=== PATIENT | female | born 1980 | race Caucasian/White ===

== ENCOUNTER 2018-02-24 18:12 | Emergency (ER) | payer OTHER ==
--- NOTE | 2018-02-24 18:52 | ERPHSYRPT ---
- History of Present Illness Time Seen by Provider: 02/24/18 18:38 Source: patient Exam Limitations: no limitations Patient Subjective Stated Complaint: left sided front head pain that radiates to the left ear and to the left jaw Triage Nursing Assessment: Pt c/o of left sided front head pain that radiates to her left ear and into her left jaw, reports that this occurs every winter, vitals wnl with the exception of BP 147/90, afebrile, pulses normal, rates pain 7/10, PERRL, no difficulties with strength Physician History: 37-year-old white female arrives with complaint of recurrent pain in her left frontal area left maxillary area radiates to her left ear. She states she's had this off-and-on for 2 months she states that it generally gets better after being placed on antibiotics by her family doctor. She does have nasal congestion and left ear pain. She has no fevers no nausea no vomiting. Past medical history includes asthma, diabetes type 2, anxiety, depression, panic disorder. Past surgical history includes cholecystectomy, , tubal ligation. Social history positive tobacco use patient denies alcohol or illicit drug use. Timing/Duration: other (patient states symptoms off and on x 2 months) Severity: moderate Modifying Factors: Improves With: ibuprofen Associated Symptoms: headaches, No nausea, No vomiting, No abdominal pain, No shortness of breath, No heartburn, No diaphoresis, No cough, No chills, No chest pain, No fever, No loss of appetite, No malaise, No rash, No syncope, No seizure, No weakness Allergies/Adverse Reactions: cephalexin monohydrate [From Keflex] Allergy (Verified 02/24/18 18:27) hydrocodone bitartrate [From Vicodin] Allergy (Verified 02/24/18 18:27) escitalopram oxalate [From Lexapro] Adverse Reaction (Verified 02/24/18 18:27) venlafaxine HCl [From Effexor] Adverse Reaction (Verified 02/24/18 18:27) Home Medications: Paroxetine HCl [Paxil] 5 mg PO DAILY 12/19/15 [History] Hx Tetanus, Diphtheria Vaccination/Date Given: No Hx Influenza Vaccination/Date Given: No Hx Pneumococcal Vaccination/Date Given: No - Review of Systems Constitutional: No Fever, No Chills Eyes: No Symptoms, No Eye Pain, No Eye Redness, No Photophobia Ears, Nose, & Throat: Ear Pain (right ear pain), Nose Congestion, Other (pain over frontal and maxillary sinuses on the left), No Ear Discharge, No Hearing Changes, No Tinnitus, No Nose Pain, No Nose Discharge, No Sinus Drainage, No Epistaxis, No Mouth Pain, No Mouth Swelling, No Loose Teeth, No Throat Pain, No Throat Swelling, No Hoarse, No Painful Swallowing, No Snoring, No Stridor Respiratory: No Cough, No Dyspnea Cardiac: No Chest Pain, No Edema, No Syncope Abdominal/Gastrointestinal: No Abdominal Pain, No Nausea, No Vomiting, No Diarrhea Genitourinary Symptoms: No Dysuria Musculoskeletal: No Back Pain, No Neck Pain Skin: No Rash Neurological: Headache, No Irritability, No Lethargy, No Paralysis, No Parasthesia, No Seizure, No Sensory Changes, No Speech Changes, No Tics, No Tremors, No Vertigo Psychological: No Symptoms Endocrine: No Symptoms All Other Systems: Reviewed and Negative - Past Medical History Pertinent Past Medical History: Yes Neurological History: No Pertinent History ENT History: No Pertinent History Cardiac History: No Pertinent History Respiratory History: Asthma Endocrine Medical History: Diabetes Type II Musculoskeletal History: No Pertinent History GI Medical History: Gallbladder Disease History: No Pertinent History Psycho-Social History: Anxiety, Depression, Panic Disorder Female Reproductive Disorders: No Pertinent History - Past Surgical History Past Surgical History: Yes Neuro Surgical History: No Pertinent History Cardiac: No Pertinent History Respiratory: No Pertinent History Gastrointestinal: Cholecystectomy Genitourinary: No Pertinent History Musculoskeletal: Orthopedic Surgery Female Surgical History: Section, Tubal Ligation Other Surgical History: right wrist - Social History Smoking Status: Current every day smoker How long have you smoked: 14 Exposure to second hand smoke: Yes Drug Use: none Patient Lives Alone: No - Female History Hx Now: No (tubal) - Nursing Vital Signs Nursing Vital Signs: Initial Vital Signs Temperature 97.7 F 02/24/18 18:16 Pulse Rate 93 H 02/24/18 18:16 Blood Pressure 147/90 02/24/18 18:16 O2 Sat by Pulse Oximetry 100 02/24/18 18:16 Pain Scale Pain Intensity 7 - Physical Exam General Appearance: other (well-developed obese white female alert oriented 3 pleasant and cooperative to examination, tender with percussion over left frontal and left maxillary sinus) Eye Exam: PERRL/EOMI, eyes nml inspection Ears, Nose, Throat Exam: normal ENT inspection, TMs normal, pharynx normal, moist mucous membranes, other (tender with percussion over left frontal and left maxillary sinus), No pharyngeal erythema, No tonsillar exudate Neck Exam: normal inspection, non-tender, supple, full range of motion Respiratory Exam: normal breath sounds, lungs clear, No respiratory distress Cardiovascular Exam: regular rate/rhythm, normal heart sounds, normal peripheral pulses Gastrointestinal/Abdomen Exam: soft, normal bowel sounds, No tenderness, No mass Back Exam: normal inspection, normal range of motion, No CVA tenderness, No vertebral tenderness Extremity Exam: normal inspection, normal range of motion, pelvis stable Neurologic Exam: alert, oriented x 3, cooperative, internal communications intern II-XII nml as tested, normal mood/affect, nml cerebellar function, nml station & gait, sensation nml, No motor deficits Skin Exam: normal color, warm, dry, No rash SpO2 Interpretation: normal (100%) SpO2: 100 - Course Nursing assessment & vital signs reviewed: Yes - Progress Progress: improved Progress Note: 02/24/18 18:50 37-year-old white female arrives with complaint of pain in her left maxillary sinus region also left ear symptoms off and on for 2 months. She states this is bothering her now she states that she has gotten some relief with antibiotics in the past by her family doctor. She has not had any fevers no nausea no vomiting. She does state that she's had nasal congestion and feels like she's having a hard time getting congestion out. On physical examination she is tender with percussion to the left frontal and maxillary region she has slight erythema to the nasal mucosa. She has a normal neurologic examination. I've offered to check her blood sugars however she states she has diet- controlled diabetes and she does not want these checked. Will go ahead and place patient on amoxicillin 500 mg orally 3 times a day for 14 days. She is to continue ibuprofen every 6 hours. She may also add Tylenol every 4 hours as needed for pain. She is to drink plenty of fluids. Patient has been advised to quit smoking. 02/24/18 18:54 Although the patient states that she is allergic to Keflex. She states that she is able to take amoxicillin without any problems and has taken so without any problems. Therefore we'll place patient on amoxicillin. - Departure Time of Disposition: 18:52 Departure Disposition: Home Clinical Impression: Sinusitis Qualifiers: Sinusitis location: unspecified location Chronicity: acute Recurrence: recurrent Qualified Code(s): J01.91 - Acute recurrent sinusitis, unspecified Headache Qualifiers: Headache type: unspecified Headache chronicity pattern: unspecified pattern Intractability: not intractable Qualified Code(s): R51 - Headache Condition: Fair Critical Care Time: No Referrals: CHRISTIANA SIERRA MD [Primary Care Provider] - Additional Instructions: Return home. Plenty of fluids. Amoxicillin 500 mg orally 3 times a day for 14 days. Continue ibuprofen every 6 hours as needed for pain. Tylenol every 4 hours as needed for pain. Follow-up with your family doctor. Return for acute distress or for severe symptoms. quit smoking Prescriptions: Amoxicillin 500 mg PO TID #42 tablet
[2018-02-24] MEDS ORDERED: TORAdol 30 mg Injection ONE (18:54)
[2018-02-24] MEDS: TORAdol 30 mg Injection IM ONE (18:55)
[2018-02-24 19:19] VITALS: BP 131/75; PULSE 97; O2SAT 97
== END 2018-02-24 19:20 | disposition home or self-care (01) ==
LOC: ED 18:12
DX: J01.91 Acute recurrent sinusitis, unspecified (principal); R51 Headache; H92.02 Otalgia, left ear
CPT/HCPCS: 96372; 99283; J1885